=== PATIENT | female | born 2005 | race African-American/Black ===

== ENCOUNTER 2023-07-03 12:31 | Emergency (ER) | payer BC ==
[~2023-07-03] VITALS: Ht 165.1 cm; Wt 82.0 kg
[2023-07-03 13:05] VITALS: BP 125/81; PULSE 77; RESP 18; TEMP 98.2; O2SAT 99
== END 2023-07-03 14:49 | disposition home or self-care (01) ==
LOC: ER 12:31
DX: L02.01 Cutaneous abscess of face (principal)
CPT/HCPCS: 99281